=== PATIENT | female | born 1965 | race Hispanic/Latino ===

== ENCOUNTER 2021-02-02 23:12 | Emergency (ER) | payer SELFPAY ==
[~2021-02-02] VITALS: Ht 154.9 cm; Wt 74.8 kg
[2021-02-02] MEDS ORDERED: ONDANSETRON HCL INJ 2MG/ML 2ML 2 MG/ML VIAL IV STA (23:43)
== END 2021-02-03 00:30 | disposition home or self-care (01) ==
LOC: ER 23:18
DX: F41.9 Anxiety disorder, unspecified (principal); R11.0 Nausea
CPT/HCPCS: 99283